=== PATIENT | male | born 1955 | race Caucasian/White ===

== ENCOUNTER 2016-06-22 17:47 | Emergency (ER) | payer MEDICARE, OTHER ==
[2016-06-22] MEDS ORDERED: IBUPROFEN 800 MG TABLET ONE (20:33)
--- NOTE | 2016-06-22 20:34 | RAD ---
EXAMINATION : KNEE- LEFT 4 OR MORE VIEWS HISTORY: Left knee pain. COMPARISONS: 04/18/2015. FINDINGS: No fracture or focal destruction is identified.. The joint space relationships are maintained. No soft tissue abnormality is identified. IMPRESSION: No evidence of acute fracture or significant change involving the left knee. Findings are unchanged from the prior study of 04/18/2015.
== END 2016-06-22 21:21 | disposition home or self-care (01) ==
LOC: ED 17:47
DX: S83.92XA Sprain of unspecified site of left knee, initial encounter (principal); W01.0XXA Fall on same level from slipping, tripping and stumbling without subsequent striking against object, initial encounter; Y93.01 Activity, walking, marching and hiking; Y92.838 Other recreation area as the place of occurrence of the external cause
CPT/HCPCS: 73564; 99283 ×2; A9270